=== PATIENT | female | born 1960 | race Caucasian/White ===

== ENCOUNTER → 2017-01-19 07:01 | Day surgery (SDC) | payer BC ==
--- NOTE | 2017-01-10 12:11 | HP ---
PREOPERATIVE HISTORY AND PHYSICAL: DATE OF ADMISSION: 01/19/17 This patient is scheduled for same-day surgery admission by Dr. Kingsley on Sunday , 01/19/17 DATE OF EXAM: 01/10/17 ATTENDING SURGEON: Dr. Ruth Kingsley (dictated by Le Ann NP) CHIEF COMPLAINT: Abnormal right mammogram. HISTORY OF PRESENT ILLNESS: The patient is a 56-year-old female, recently evaluated by Dr. Kingsley; she had an abnormal right mammogram on 12/26/16 which prompted a biopsy that revealed atypical ductal hyperplasia. She was referred to Dr. Kingsley for wider excision. The patient denies any pain or nipple discharge; age of menarche was 11; she had her first child at age 26 and she did breastfeed; she is status post hysterectomy with ovaries left in place 1997 ; the hysterectomy was for uterine fibroids; the patient took control pills for short period of time when she was around age 16. Family history is significant for mother who had breast cancer in her 80s and a maternal half aunt who had breast cancer in her 60s; there is no known family history of ovarian cancer; the patient has never had any radiation to the chest. Dr. Kingsley examined the patient and reviewed the above findings with her and has recommended mammo-guided needle localization excision of right breast atypical ductal hyperplasia as a same-day surgery procedure; she discussed the nature of the surgical procedure, the relevant risks and benefits and today I reviewed the typical postoperative care and recovery. The patient has had a chance to ask questions and stated that she understands the information and is satisfied with the answers given to her questions. She will sign surgical consent on the day of surgery. PAST MEDICAL HISTORY: Generally healthy. No acute or chronic conditions. PAST SURGICAL HISTORY: Hysterectomy in 1997, tubal ligation remotely. OB HISTORY: 4, para 2, miscarriage 1, 1. MEDICATIONS: None currently. No vitamins or herbs. ALLERGIES: PENICILLIN has caused hives. FAMILY HISTORY: Mother diagnosed with breast cancer in her 80s and also has a history of melanoma. Father with a history of hypertension. No ovarian cancer known in the family. SOCIAL HISTORY: She is ; she is a nonsmoker. She drinks alcohol 3 to 4 times a week and denies the use of other substances and exercises routinely. REVIEW OF SYSTEMS: She denies any cardiac conditions or complaints; denies any respiratory conditions or complaints; denies any history of deep vein thrombosis or pulmonary embolism; she states with previous anesthesia, she had severe nausea and dry heaves; she denies any bleeding tendencies and has never received a blood transfusion. She denies any gastrointestinal conditions or complaints. She denies any genitourinary conditions or complaints. She denies any musculoskeletal conditions or complaints and denies any neurologic conditions or complaints. She does have a history of melanoma on one of the lower extremities and basal cell carcinoma on her face. PHYSICAL EXAMINATION GENERAL SURVEY: The patient is a 56-year-old female, well developed, well nourished in no acute distress. VITAL SIGNS: Height 66 inches, weight 160 pounds, body mass index 25.8, blood pressure 116/68, pulse 60 and regular, respiratory rate 16, temperature 97.9 tympanic. SKIN: Warm, dry and intact. HEENT: Benign. NECK: Supple. No cervical lymphadenopathy. No thyromegaly. BACK: No CVA tenderness. BREASTS: Examined in both sitting and supine positions. No abnormal skin changes. No puckering. Nipples are erect bilaterally. No nipple discharge. Examination of the right breast reveals no discrete masses. Examination of the left breast reveals no discrete masses. There is no supraclavicular or axillary adenopathy palpable bilaterally. LUNGS: Breath sounds bilaterally clear and equal. HEART: Regular rate and rhythm. No murmurs or rubs appreciated. ABDOMEN: Soft, active bowel sounds, nondistended. No obvious masses, organomegaly or evidence of umbilical hernia. PELVIC: Deferred. RECTAL: Deferred. EXTREMITIES: Warm without edema or skin ulcerations. NEUROLOGIC: Alert and oriented x3, steady gait. IMPRESSION: Atypical ductal hyperplasia, right breast. PLAN: Same-day surgery admission to Dr. Kingsley's service on 01/19/17, for mammo-guided needle localization excision of right breast atypical ductal hyperplasia. DANYEL ANN NP CC: Dr. Kingsley; Dr. Ashford * [id number]/[facility] #: [id number] [facility]
[~2017-01-19 07:01] MED LIST: Acetaminophen TAB* 325 MG PO PRN; Bupivacaine 0.5% SDV PF* 30 ML VIAL ONE; Clindamycin 900 MG IVPREMIX(* 900 MG/50 ML SDV IV ONE; Dexamethasone IV* 4 MG/ML 1 ML (4 MG) ONE; DiMENhydriNATE IV* 50 MG/ML VIAL IV PUSH PRN; Famotidine IV* 10 MG/ML 2 ML (20 mg) ONE; HYDROcodone/ACETAMIN 5-325 MG* 1 TAB PO PRN; Ketorolac INJ* 30 MG/ML 1 ML VIAL ONE; Lidocaine 2% PF * 5 ML VIAL ONE; Lidocaine 2.5%/Prilocain 2.5%* 5 GM TUBE ONE; Midazolam* 1 MG/ML 2 ML VIAL (2 MG) ONE; NS 0.9% 1000 ML* 1,000 ML IV SCH; Ondansetron INJ* 2 MG/ML VIAL IV PRN; Ondansetron INJ* 2 MG/ML VIAL ONE; PROCHLORPERAZINE INJ 5 MG/ML 2 ML VIAL IV PRN; Propofol* 10 MG/ML 20 ML BTL IV PUSH ONE; Scopolamine 1.5 mg* PATCH TRANSDERM PRN; Scopolomine PATCH Remove* 1 NOTE MISC PATCH OFF ONE; fentaNYL* 50 MCG/ML 2 ML VIAL (100 MCG VIAL) IV PRN; fentaNYL* 50 MCG/ML 2 ML VIAL (100 MCG VIAL) ONE; oxyCODONE/Acetamin 5/325 MG* TAB PO PRN
--- NOTE | 2017-01-19 09:21 | RAD ---
PROCEDURE: Mammographic needle/wire localization of the right breast PREOPERATIVE DIAGNOSIS: Atypical ductal hyperplasia POSTOPERATIVE DIAGNOSIS: Same COMPARISONS: January 01, 2017 HYDROELECTRIC PRODUCTION MANAGER: Jensen Del Castillo MD ANESTHESIA: Local anesthesia with 1% lidocaine without epinephrine FLUOROSCOPY TIME: None CONTRAST: None PROCEDURAL NARRATIVE: The procedure was explained to the patient who indicated understanding. Written and verbal informed consent was obtained. An opportunity was given to ask and answer questions. A timeout was performed. The patient was prepped and draped in the usual sterile fashion. Using mammographic guidance, a needle/wire localization system was advanced to the target clip in the right breast. Once position was confirmed, the needle was removed using pin pull technique. Post localization mammography was performed. The wound was dressed and the wire was secured. FINDINGS: A biopsy marker clip is noted in the right breast. The wire is noted in close proximity to the marker clip. There is no significant post biopsy hematoma. SPECIMENS: Pending COMPLICATIONS: None DISPOSITION: The patient tolerated the procedure well, without complications during or immediately following the procedure. The patient was sent to the surgical suite in good, stable condition. IMPRESSION: TECHNICALLY SUCCESSFUL, UNCOMPLICATED, MAMMOGRAPHIC GUIDED WIRE LOCALIZATION OF THE RIGHT BREAST FOR THE PURPOSES OF EXCISIONAL BIOPSY. HISTOLOGY IS PENDING
--- NOTE | 2017-01-19 13:04 | SURGPN ---
Brief Operative Note - Surgery Procedures: 01/19/17 Op Note Pre-op dx: atypical ductal hyperplasia right breast Post-op dx: same Procedure: needle localization excision of ADH right breast Surgeon: Sancho Asst: none Anesth: general EBL: 5 cc complications: none Abx: given pre-op SCDs: on during surgery Pt. tolerated procedure well and was transferred to in a stable condition. [facility]
[2017-01-19 13:58] VITALS: BP 159/80
--- NOTE | 2017-01-20 03:54 | OP ---
CC: [facility]; Erik Ashford MD OPERATIVE NOTE: DATE OF OPERATION: 01/19/17 DATE OF : 56 SURGEON: Dr. Kingsley. TRAFFIC ANALYST: There was no assistant community director for this case. PRE-OP DIAGNOSIS: Right breast atypical ductal hyperplasia. POST-OP DIAGNOSIS: Right breast atypical ductal hyperplasia. OPERATIVE PROCEDURE: Needle localization excision of right breast atypical ducal hyperplasia. INDICATIONS: Ms. Tao is a 56-year-old woman who underwent stereotactic biopsy, which showed jerry e atypical ductal hyperplasia prompting the plan for wider excision. DESCRIPTION OF PROCEDURE: She was prepared for surgery and on the morning of surgery underwent need le localization without difficulty. She was then brought to the operating room, placed on the OR ta ble in a supine position and given general anesthesia. The right breast was prepped and draped in t he usual sterile fashion, taking care not to dislodge the localizing wire. After infiltrating with local anesthetic, a curvilinear elliptical incision encompassing the wire and the previous biopsy sc ar was made. Subcutaneous tissue was divided with electrocautery to remove a mass of tissue from ar ound the tip of the wire. This was marked in the usual fashion and handed off as a specimen. The w ound was irrigated with saline and hemostasis was achieved with electrocautery. Once this was adequ ate, additional local was instilled into the wound and closure was accomplished with 3-0 Polysorb in the subcutaneous layer and the skin was closed with 4-0 Surgipro in the subcuticular fashion. Ster i-Strips and a dry sterile dressing were applied. All sponge and instrument counts were correct. T he patient tolerated the procedure well and was transferred to Recovery in a stable condition. [id number]/[facility] #: [id number]
== END | disposition home or self-care (01) ==
LOC: SDS 07:01
PROVIDERS: ATTEND Surgery
DX: N60.91 Unspecified benign mammary dysplasia of right breast (principal)
CPT/HCPCS: 88307; A9270-GY; J1100; J1885; J2250; J2405; J2704; J3010